=== PATIENT | female | born 1950 | race Caucasian/White ===

== ENCOUNTER → 2021-01-31 | Outpatient (CLI) | payer BC, MEDICARE | LOC: KOH-I 08:30 | DX: S92.002D Unspecified fracture of left calcaneus, subsequent encounter for fracture with routine healing (principal); X58.XXXD Exposure to other specified factors, subsequent encounter | CPT/HCPCS: 73700 ==

== ENCOUNTER → 2021-02-20 | Outpatient (CLI) | payer BC, MEDICARE | LOC: KOH-I 13:24 | DX: S92.002A Unspecified fracture of left calcaneus, initial encounter for closed fracture (principal); Z98.890 Other specified postprocedural states; X58.XXXA Exposure to other specified factors, initial encounter | CPT/HCPCS: 73610; 73650 ==

== ENCOUNTER → 2021-02-27 | Outpatient (CLI) | payer MEDICARE | LOC: US 13:52 | DX: S86.012A Strain of left Achilles tendon, initial encounter (principal); X58.XXXA Exposure to other specified factors, initial encounter | CPT/HCPCS: 93926 ==

== ENCOUNTER → 2021-03-06 | Outpatient (CLI) | payer BC, MEDICARE | LOC: EMI 02-28 13:45 | DX: S86.012A Strain of left Achilles tendon, initial encounter (principal); S92.002D Unspecified fracture of left calcaneus, subsequent encounter for fracture with routine healing | CPT/HCPCS: 73721 ==

== ENCOUNTER → 2021-03-15 | Outpatient (CLI) | payer BC, MEDICARE | LOC: CT 13:30 | DX: G45.1 Carotid artery syndrome (hemispheric) (principal); M47.812 Spondylosis without myelopathy or radiculopathy, cervical region; M48.02 Spinal stenosis, cervical region; R22.2 Localized swelling, mass and lump, trunk | CPT/HCPCS: 36415; 70496; 70498; 82565; Q9965 ==

== ENCOUNTER 2021-06-14 15:49 | Emergency (ER) | payer MEDICARE ==
[2021-06-14 17:06] LABS: HEMOGLOBIN 10.9 gm/dl (12.3-15.3); RED BLOOD COUNT 3.64 M/UL (4.00-5.10); WHITE BLOOD COUNT 5.1 K/UL (4.5-11.0)
[2021-06-14 18:58] LABS: BUN/CREATININE RATIO 15 (0-10)
[2021-06-14] MEDS ORDERED: CEPHALEXIN500 M1 PO (22:39)
== END 2021-06-14 21:00 | disposition home or self-care (01) ==
LOC: ER1 15:49
PROVIDERS: Physician Assistant
DX: S09.8XXA Other specified injuries of head, initial encounter (principal); S30.0XXA Contusion of lower back and pelvis, initial encounter; I95.1 Orthostatic hypotension; R53.1 Weakness; R41.82 Altered mental status, unspecified; I48.91 Unspecified atrial fibrillation; Z79.01 Long term (current) use of anticoagulants; Z88.8 Allergy status to other drugs, medicaments and biological substances; W19.XXXA Unspecified fall, initial encounter
CPT/HCPCS: 70450; 72100; 72125; 80053; 80307; 81001; 82140; 82550; 82553; 83874; 84484; 85025; 93005; 99285; G0480

== ENCOUNTER → 2021-09-18 | Outpatient (CLI) | payer MEDICARE ==
[~2021-09-18] MED LIST: CEPHALEXIN500 M1 PO
== END ==
LOC: MRI 10:23
DX: D33.2 Benign neoplasm of brain, unspecified (principal); R42 Dizziness and giddiness; R90.89 Other abnormal findings on diagnostic imaging of central nervous system
CPT/HCPCS: 36415; 70553; 82565; 84520; A9577